=== PATIENT | male | born 1995 | race Caucasian/White ===

== ENCOUNTER 2025-01-21 09:59 | Emergency (ER) | payer OTHER, SELFPAY ==
[2025-01-21 10:01] VITALS: BP 128/78; PULSE 82; RESP 18; TEMP 36.8; O2SAT 98
--- NOTE | 2025-01-21 10:04 | CTR_ITS ---
PROCEDURE INFORMATION: Exam: CT Cervical Spine Without Contrast Exam date and time: 01/21/2025 10:20 AM Age: 29 years old Clinical indication: Injury or trauma; Other: 10ft fall from roof; Blunt trauma TECHNIQUE: Imaging protocol: Computed tomography of the cervical spine without contrast. Radiation optimization: All CT scans at this facility use at least one of these dose optimization techniques: automated exposure control; mA and/or kV adjustment per patient size (includes targeted exams where dose is matched to clinical indication); or iterative reconstruction. COMPARISON: CT head wo con* [id number] 01/21/2025 10:20 AM RADIATION DOSE METRICS: Total DLP (mGy-cm): 534.1 FINDINGS: Bones: No acute fracture. Normal alignment. No significant disc bulge or herniation. No severe spinal canal stenosis. No significant neural foraminal narrowing. Lungs: Lung apices are normal. Soft tissues: Unremarkable. CT/CT cervical spin wo con* [id number] IMPRESSION: No acute findings.
--- NOTE | 2025-01-21 10:04 | CTR_ITS ---
PROCEDURE INFORMATION: Exam: CT Head Without Contrast Exam date and time: 01/21/2025 10:20 AM Age: 29 years old Clinical indication: Injury or trauma; Other: Not specefied; Blunt trauma (contusions or hematomas) TECHNIQUE: Imaging protocol: Computed tomography of the head without contrast. Radiation optimization: All CT scans at this facility use at least one of these dose optimization techniques: automated exposure control; mA and/or kV adjustment per patient size (includes targeted exams where dose is matched to clinical indication); or iterative reconstruction. COMPARISON: CT cervical spin wo con* [id number] 01/21/2025 10:20 AM RADIATION DOSE METRICS: Total DLP (mGy-cm): 534.1 FINDINGS: Brain: Normal. No hemorrhage. Unremarkable white matter. No mass effect. Cerebral ventricles: No ventriculomegaly. Paranasal sinuses: Left maxillary sinus mucous retention cysts. Mucosal thickening in the right maxillary sinus with small layering fluid. Patchy opacification of the ethmoid air cells. Mastoid air cells: Visualized mastoid air cells are well aerated. Bones: Unremarkable. No acute fracture. Soft tissues: Unremarkable. CT/CT head wo con* [id number] IMPRESSION: 1. No acute intracranial findings. 2. Paranasal sinus disease.
--- NOTE | 2025-01-21 10:04 | CTR_ITS ---
PROCEDURE INFORMATION: Exam: CT Chest With Contrast; Diagnostic Exam date and time: 01/21/2025 10:33 AM Age: 29 years old Clinical indication: Injury or trauma; Other: Not specified; Generalized; Blunt trauma (contusions or hematomas) TECHNIQUE: Imaging protocol: Diagnostic computed tomography of the chest with contrast. Radiation optimization: All CT scans at this facility use at least one of these dose optimization techniques: automated exposure control; mA and/or kV adjustment per patient size (includes targeted exams where dose is matched to clinical indication); or iterative reconstruction. Contrast material: OMNI 350; Contrast volume: 100 ml; Contrast route: INTRAVENOUS (IV); COMPARISON: CT cervical spin wo con* [id number] 01/21/2025 10:20 AM RADIATION DOSE METRICS: Total DLP (mGy-cm): 1392.84 FINDINGS: Lungs: Unremarkable. No consolidation. No masses. Pleural spaces: Unremarkable. No pneumothorax. No pleural effusion. Heart: Unremarkable. No cardiomegaly. No pericardial effusion. Coronary arteries: No coronary artery calcifications. Lymph nodes: Unremarkable. No enlarged lymph nodes. Vasculature: Unremarkable. No aortic aneurysm. Bones/joints: Unremarkable. No acute fracture. Soft tissues: Unremarkable. PROCEDURE INFORMATION: Exam: CT Abdomen And Pelvis With Contrast Exam date and time: 01/21/2025 10:33 AM Age: 29 years old Clinical indication: Injury or trauma; Other: Not specified; Generalized; Blunt trauma (contusions or hematomas) TECHNIQUE: Imaging protocol: Computed tomography of the abdomen and pelvis with contrast. Radiation optimization: All CT scans at this facility use at least one of these dose optimization techniques: automated exposure control; mA and/or kV adjustment per patient size (includes targeted exams where dose is matched to clinical indication); or iterative reconstruction. Contrast material: OMNI 350; Contrast volume: 100 ml; Contrast route: INTRAVENOUS (IV); COMPARISON: No relevant prior studies available. RADIATION DOSE METRICS: Total DLP (mGy-cm): 1392.84 FINDINGS: Liver: Normal appearance of the liver. Gallbladder and biliary ducts: No calcified stones or ductal dilation. Pancreas: No ductal dilation. Spleen: Unremarkable. Adrenal glands: Unremarkable. Kidneys and ureters: No hydronephrosis. Stomach and bowel: No obstruction. No mucosal thickening. Appendix: No evidence of appendicitis. Intraperitoneal space: No free air. No significant fluid collection. Vasculature: Unremarkable. Lymph nodes: No enlarged lymph nodes. Urinary bladder: Unremarkable as visualized. Reproductive: Unremarkable as visualized. Bones/joints: Unremarkable. No acute fracture. Soft tissues: Unremarkable. CT/CT chest abdpel w/*[id number] IMPRESSION: No acute traumatic injuries identified.
--- NOTE | 2025-01-21 10:05 | ED_ITS ---
HPI - Trauma 2 General: Chief Complaint: Fall Stated Complaint: fall from roof Time Seen by Provider: 01/21/25 10:00 History of Present Illness: 29-year-old male presents emergency room he fell from a roof approximately 10 feet he is repetitive with questions cannot answer many other questions were asked he knows he was observed he cannot tell me specifically where he does know his name he cannot tell me any details about the accident. 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 He is nauseous but denies having vomited he is complaining of low back pain at this time denies any other abdominal pain or extremity pain moves all extremities without difficulty cannot give me any past medical history. Associated symptoms: Reports back pain; Denies abdominal pain or chest pain Related Data Home Medications ?Medication ?Instructions ?Recorded ?Confirmed albuterol sulfate 90 mcg/actuation 2 puff inhalation . Q4-6H PRN 01/21/25 01/21/25 aerosol inhaler Shortness Of Breath fluticasone furoate 100 1 inh inhalation DAILY 01/2101/21/25 mcg-vilanterol 25 mcg/dose inhalation powder (Breo Ellipta) Allergies Allergy/AdvReac Type Severity Reaction Status Date / Time No Known Allergies Allergy Verified 01/21/25 10:22 Review of Systems 2 Card: Denies: chest pain Resp: Denies: dyspnea GI: Denies: abdominal pain Musc: Reports: back pain; Denies: neck pain Physical Exam 2 Const: GENERAL APPEARANCE: cooperative ORIENTATION/CONSCIOUSNESS: Yes awake HENMT: COMMON NORMALS: normocephalic, atraumatic and hearing grossly normal bilaterally HEAD & SCALP: normocephalic and atraumatic Resp: COMMON NORMALS: normal respiratory effort, No retractions, No use of accessory muscles and clear to auscultation bilaterally AUSCULTATION: clear to auscultation bilaterally Cardio: COMMON NORMALS: regular rate, regular rhythm and No murmurs present (Cardio) RATE: regular rate RHYTHM: regular rhythm GI: COMMON NORMALS: Soft to palpation and No hepatosplenomegaly present A USCULTATION: Yes normoactive bowel sounds PALPATION: Yes Soft to palpation, No Tenderness to palpation present (GI), No Guarding due to palpation present (GI) and Yes No hepatosplenomegaly present Extremity: COMMON NORMALS: normal to inspection, capillary refill normal, no clubbing, cyanosis or edema, no calf tenderness and no pedal edema Skin: COMMON NORMALS: no rashes or lesions noted GENERAL SKIN EXAM: no rashes or lesions noted Course 2 Vital Signs: Vital signs: Vital Signs Temperature 98.2 F 01/21/25 10:01 Pulse Rate 93 01/21/25 13:16 Respiratory Rate 18 01/21/25 13:16 Blood Pressure 133/84 01/21/25 13:16 Pulse Oximetry 98 01/21/25 13:16 Oxygen Delivery Me thod Room Air 01/21/25 11:52 MDM - Trauma Medical Decision Making Patient has persistent memory deficits cannot recall her his 's name where he lives where he is at how he got here what happened. CT head chest abdomen and neck were all negative. Thoracic CT shows a compression fracture. Will transfer to [facility] for trauma care. Patient was ER to ER transfer with Dr. Cline. Transferred in stable condition by Mazin Stevenson. Exam unchanged prior to discharge Medical Records I reviewed the patient's medical records. Lab Data I reviewed the patient's lab results. 01/21/25 10:53 01/21/25 10:53 Radiology Impressions Cervical Spine CT 01/21/25 10:04 IMPRESSION: No acute findings. Chest/Abdomen/Pelvis CT 01/21/25 10:04 IMPRESSION: No acute traumatic injuries identified. IMPRESSION: No acute traumatic injuries identified. Head CT 01/21/25 10:04 IMPRESSION: 1. No acute intracranial findings. 2. Paranasal sinus disease. Lumbar Spine CT 01/21/25 11:46 Impression: Negative CT scan of the lumbar spine. Thoracic Spine CT 01/21/25 11:46 Impression: Probable minimal anterior and central vertebral body compression fracture involving the superior cortical margin of T11. Laboratory Results WBC 10.56 10^3/uL (3.29-11.43) 01/21/25 10:53 RBC 4.97 10^6/uL (3.85-5.65) 01/21/25 10:53 Hgb 15.00 g/dL (11.27-16.99) 01/21/25 10:53 Hct 44.3 % (37-53) 01/21/25 10:53 MCV 89.1 fl (82-101) 01/21/25 10:53 MCH 30.2 pg (27-33) 01/21/25 10:53 MCHC 33.9 g/dL (30-55) 01/21/25 10:53 RDW 12.6 % (12.1-15.1) 01/21/25 10:53 Plt Count 207 10^3/cmm (157-399) 01/21/25 10:53 MPV 10.4 fL (7.4-10.4) 01/21/25 10:53 Neut % (Auto) 77.0 % 01/21/25 10:53 Lymph % (Auto) 13.1 % 01/21/25 10:53 [place] % (Auto) 5.1 % 01/21/25 10:53 Eos % (Auto) 2.5 % 01/21/25 10:53 Baso % (Auto) 0.7 % 01/21/25 10:53 Neut # (Auto) 8.14 10^3/uL (1.8-7.7) H 01/21/25 10:53 Lymph # (Auto) 1.4 10^3/uL (0.8-4.8) 01/21/25 10:53 [place] # (Auto) 0.5 10^3/uL (0.2-0.9) 01/21/25 10:53 Eos # (Auto) 0.3 10^3/uL (0.0-0.8) 01/21/25 10:53 Baso # (Auto) 0.1 10^3/uL (0.0-0.1) 01/21/25 10:53 Nucleated RBC % (auto) 0 % 01/21/25 10:53 Nucleated RBCs # 0.0 /100WBC 01/21/25 10:53 Sodium 139 mmol/L (136-145) 01/21/25 10:53 Potassium 4.0 mmol/L (3.5-5.1) 01/21/25 10:53 Chloride 102 mmol/L (98-107) 01/21/25 10:53 Carbon Dioxide 24 mmol/L (22-29) 01/21/25 10:53 Anion Gap 17.0 (5-19) 01/21/25 10:53 BUN 9 mg/dL (6-20) 01/21/25 10:53 Creatinine 0.8 mg/dL (0.7-1.2) 01/21/25 10:53 GFR Calculation 115.1 mL/min (90-130) 01/21/25 10:53 Glucose 96 mg/dL (65-115) 01/21/25 10:53 Calculated Osmolality 287 mOsm/kg (285-295) 01/21/25 10:53 Calcium 8.9 mg/dL (8.5-10.5) 01/21/25 10:53 Total Bilirubin 0.3 mg/dL (0.15-1.2) 01/21/25 10:53 AST 23 U/L (0-40) 01/21/25 10:53 ALT 30 U/L (0-41) 01/21/25 10:53 Alkaline Phosphatase 72 U/L (40-130) 01/21/25 10:53 Total Protein 6.9 g/dL (6.6-8.7) 01/21/25 10:53 Albumin 4.1 g/dL (3.5-5.2) 01/21/25 10:53 Globulin 2.8 g/dL (1.3-4.6) 01/21/25 10:53 All radiology interpretation(s) finalized by discharge Discharge Plan Discharge Patient Disposition: Transfer to ED Clinical Impression: Closed compression fracture of thoracic vertebra, Fall from roof as cause of accidental injury Condition: Stable Prescriptions: No Action albuterol sulfate 90 mcg/actuation HFA aerosol inhaler 2 puff INHALATION .Q4-6H PRN (Reason: Shortness Of Breath) fluticasone furoate-vilanterol [Breo Ellipta] 100-25 mcg/dose blister with device 1 inh INHALATION DAILY Print Language: Hungarian Coding Level of Care Code ED Fraud Investigator for Mildred Lorenzo
[2025-01-21 10:36] VITALS: RESP 20
[2025-01-21] MEDS: ondansetron 2 mg/ML SDV 2 mL 4 MG IVP (10:36)
[2025-01-21] MEDS: morphine 4 mg/mL SDV 1 mL IVP (10:36)
[2025-01-21] MEDS: iohexol 350 mg/mL 500 mL Btl (per mL) IV (10:37)
--- NOTE | 2025-01-21 10:44 | PC.NURSE ---
pt's clothing cut off on arrival, no bruising noted anteriorly, unable to perform roll at this time pending CT imaging.
[2025-01-21 10:59] LABS: Basophils # 0.1 10^3/uL (0.0-0.1); Basophils % 0.7 %; Eosinophils # 0.3 10^3/uL (0.0-0.8); Eosinophils % 2.5 %; Hematocrit 44.3 % (37-53); Lymphocytes # 1.4 10^3/uL (0.8-4.8); Lymphocytes % 13.1 %; Mean Corpuscular HGB Conc 33.9 g/dL (30-55); Mean Corpuscular Hemoglobin 30.2 pg (27-33); Mean Corpuscular Volume 89.1 fl (82-101); Mean Platelet Volume 10.4 fL (7.4-10.4); Monocytes # 0.5 10^3/uL (0.2-0.9); Monocytes % 5.1 %; Neutrophils # 8.14 10^3/uL (1.8-7.7); Nucleated Red Blood Cells % 0 %; Platelet Count 207 10^3/cmm (157-399); Red Blood Count 4.97 10^6/uL (3.85-5.65); Red Cell Distribution Width 12.6 % (12.1-15.1); White Blood Count 10.56 10^3/uL (3.29-11.43)
[2025-01-21 11:17] LABS: Alanine Aminotransferase 30 U/L (0-41); Albumin Level 4.1 g/dL (3.5-5.2); Alkaline Phosphatase 72 U/L (40-130); Aspartate Amino Transferase 23 U/L (0-40); Blood Urea Nitrogen 9 mg/dL (6-20); Calcium 8.9 mg/dL (8.5-10.5); Carbon Dioxide 24 mmol/L (22-29); Chloride 102 mmol/L (98-107); Globulin 2.8 g/dL (1.3-4.6); Glomerular Filtration Rate 115.1 mL/min (90-130); Glucose 96 mg/dL (65-115); Osmolality Calculated 287 mOsm/kg (285-295); Sodium 139 mmol/L (136-145); Total Bilirubin 0.3 mg/dL (0.15-1.2); Total Protein 6.9 g/dL (6.6-8.7)
--- NOTE | 2025-01-21 11:46 | CT_ITS ---
WS: [id number] CT of the lumbar spine, additional two-dimensional coronal and sagittal imaging was obtained. 01/21/2025 Clinical Data: trauma Comparison: CT chest abdomen pelvis, 01/21/2025 DLP: 1830.[address] scans at [facility] use at least one of these dose optimization techniques: automated exposure control; mA and/or kV adjustment per patient size (includes targeted exams where dose is matched to clinical indication); or iterative reconstruction. Findings: No compression fractures are present. The disc heights are normal. The transverse processes and SI joints are normal. Contrast material is in the kidneys and ureters. CT/CT lumbar spine wo con* [id number] Impression: Negative CT scan of the lumbar spine.
--- NOTE | 2025-01-21 11:46 | CT_ITS ---
WS: [id number] CT scan of the thoracic spine. Additional two-dimensional coronal and sagittal reconstruction was performed. 01/21/2025 Clinical Data: trauma Comparison: CT chest abdomen pelvis, 01/21/2025 DLP: 1830.[address] scans at [facility] use at least one of these dose optimization techniques: automated exposure control; mA and/or kV adjustment per patient size (includes targeted exams where dose is matched to clinical indication); or iterative reconstruction. Findings: There is slight loss of anterior and central vertebral body height of less than 25% of the T11 vertebral body. No other abnormalities of the vertebral bodies can be seen. No fractures of the facets or spinous processes are seen. There is no anterior osteoarthritic spurring of the lower thoracic vertebral bodies. The spinous processes are in good alignment. The proximal ribs are not remarkable. No lung abnormalities are seen. CT/CT thoracic spin wo con* [id number] Impression: Probable minimal anterior and central vertebral body compression fracture invol ving the superior cortical margin of T11.
[2025-01-21 11:52] VITALS: BP 133/84; PULSE 85; O2SAT 98
--- NOTE | 2025-01-21 11:59 | PC.NURSE ---
per ED charge, pt attempted to get pt up to use urinal; but stated needed to lay down and vomited.
--- NOTE | 2025-01-21 12:23 | PC.NURSE ---
called report to SANJU Go at [facility] in ER. report number
--- NOTE | 2025-01-21 12:26 | PC.NURSE ---
[facility] notified by ED UC
--- NOTE | 2025-01-21 12:26 | PC.NURSE ---
family updated on pt transfer
--- NOTE | 2025-01-21 13:06 | PC.NURSE ---
repot given to [facility] @[id number], family updated on pt leaving facility
[2025-01-21 13:16] VITALS: BP 133/84; PULSE 93; RESP 18; O2SAT 98
--- NOTE | 2025-01-21 13:16 | DCPLANNER ---
called and let know nitin was accepted and going to [facility]
== END 2025-01-21 13:18 ==
PROVIDERS: Emergency Provider Family Medicine
DX: S22.080A Wedge compression fracture of T11-T12 vertebra, initial encounter for closed fracture (principal); W13.2XXA Fall from, out of or through roof, initial encounter
CPT/HCPCS: 36415; 70450; 71260; 72125; 72128; 72131; 74177; 80053; 85025; 96374; 96375; 99285; 99291; J2270; J2405